=== PATIENT | female | born 1950 ===

== ENCOUNTER 2017-08-26 12:37 | Inpatient (IN) | payer MEDICARE, OTHER ==
--- NOTE | 2017-08-26 14:02 | C.PDOC ---
History Of Present Illness <Héctor Atkinson - Last Filed: 08/26/17 15:55> <Yesi Plascencia - Last Filed: 08/26/17 16:08> Patient is a 66 year old female with a history of HTN, HLD, DM, [place], cardiac stents x2, CKD on dialysis (MWF), who presents to the ED for a left lateral foot lesion. Patient is scheduled for the OR with Dr. Contreras today. The patient was scratched by her cat on the left lateral foot approximately 2 months ago. Her , who is at bedside & contributing to the history, applied topical antibiotic cream with minimal relief. Per the , 1 month ago, the lesion started to bleed, so he applied more topical antibiotic cream. Patient was then prescribed an oral and topical antibiotic for 7 days by PMD, Dr. Robert Aguirre. Per the , the PMD suggested the lesion may be infected. Patient saw Dr. Contreras, who then scheduled the patient for the OR today. Currently the patient complaints of mild pain and tenderness with palpation and with walking. Patient denies chest pain, palpitations, abdominal pain, sob, nausea, vomiting, fevers, and headaches. PMD: Dr. Robert Aguirre PMHx: HTN, HLD, DM, CKD, dialysis, [place], cardiac stents x2 FamHx: Mother- DM, ESRD/dialysis; father- DM SocHx: denies tobacco, alcohol, drug use; unemployed. Allergies: NKDA Medications: Lovastatin 40mg, gabapentic 300mg, clacium acetate, amplodipine 5mg , glipizide 5mg, zolipedem 10mg, carvedilol 25mg, plaquenil 200mg, asa 81mg, omeprazole 40mg, amitriptiline 80mg. (Yesi Plascencia) <Héctor Atkinson - Last Filed: 08/26/17 15:55> History Per: Patient Onset/Duration Of Symptoms: Persistent Current Symptoms Are (Timing): Better Severity: Mild Additional History Per: Patient, Family () - Ankle/Foot Description Of Injury: Other (cat scratch on left lateral foot) <Yesi Plascencia - Last Filed: 08/26/17 16:08> Time Seen by Provider: 08/26/17 13:48 Chief Complaint (Nursing): Lower Extremity Problem/Injury Past Medical History - Medical History PMH: CAD (2 stents), Depression, Diabetes, GERD, HTN, Hyperlipidemia, Chronic Kidney Disease (dialysis) Surgical History: Coronary Stent Family History: States: Unknown Family Hx - Social History Hx Tobacco Use: No Hx Alcohol Use: No Hx Substance Use: No - Immunization History Hx Tetanus Toxoid Vaccination: No Hx Influenza Vaccination: No Hx Pneumococcal Vaccination: No <Yesi Plascencia - Last Filed: 08/26/17 16:08> Vital Signs: Last Vital Signs Temp 98 F 08/26/17 13:31 Pulse 89 08/26/17 13:31 Resp 16 08/26/17 13:31 BP 160/80 H 08/26/17 13:31 Pulse Ox 98 08/26/17 14:25 - [facility] Procedures HEMODIALYSIS (02/17/14) Review Of Systems Constitutional: Negative for: Fever, Chills Cardiovascular: Negative for: Chest Pain, Palpitations, Edema, Light Headedness Respiratory: Negative for: Cough, Shortness of Breath Gastrointestinal: Negative for: Nausea, Vomiting, Abdominal Pain, Diarrhea, Constipation Genitourinary: Positive for: Other (anuric) Musculoskeletal: Positive for: Foot Pain (left lateral foot tenderness) Neurological: Negative for: Headache, Dizziness <Yesi Plascencia - Last Filed: 08/26/17 16:08> Physical Exam - Physical Exam Appears: Well, Non-toxic, No Acute Distress Skin: Normal Color, Warm, Dry Head: Atraumatic, Normacephalic Eye(s): bilateral: Normal Inspection Cardiovascular: Rhythm Regular, No Edema, No Murmur Respiratory: Normal Breath Sounds, No Rales, No Rhonchi, No Stridor, No Wheezing Gastrointestinal/Abdominal: Normal Exam, Bowel Sounds, Soft, No Tenderness Extremity: Tenderness (left lateral foot- non erythematous, slightly tender to touch with palpation; chronic hyperkeratization.), No Pedal Edema, No Calf Tenderness, No Swelling Extremity: Left: Painful To Bear Weight, Bilateral: No Pedal Edema Pulses: Left Dorsalis Pedis: Decreased, Right Dorsalis Pedis: Decreased Neurological/Psych: Oriented x3, Normal Speech Gait: With Assistance (2/2 to left foot pain) <Yesi Plascencia - Last Filed: 08/26/17 16:08> ED Course And Treatment - Laboratory Results Result Diagrams: 08/26/17 14:10 08/26/17 14:10 - Physician Consult Information Outcome Of Conversation: 1400: d/w Dr. Contreras- ok to admit to his service <Héctor Atkinson - Last Filed: 08/26/17 15:55> - Laboratory Results Result Diagrams: 08/26/17 14:10 08/26/17 14:10 O2 Sat by Pulse Oximetry: 98 <Yesi Plascencia - Last Filed: 08/26/17 16:08> Medical Decision Making <Héctor Atkinson - Last Filed: 08/26/17 15:55> <Yesi Plascencia - Last Filed: 08/26/17 16:08> Medical Decision Making: Dr. Contreras contacted and patient admitted under his service. Patient planned for OR. Dr. Contreras aware that patient needs dialysis today and will be scheduled for dialysis per Dr. Contreras. Ordered pre-op labs and imaging: - Labs: CBC, CMP, Coags, UA - Left foot Xray - Chest Xray - EKG - Keep NPO (Yesi Plascencia) Disposition Doctor Will See Patient In The: Hospital Counseled Patient/Family Regarding: Studies Performed, Diagnosis - Disposition Disposition Time: 15:55 <Héctor Atkinson - Last Filed: 08/26/17 15:55> <Yesi Plascencia - Last Filed: 08/26/17 16:08> - Disposition Disposition: HOSPITALIZED Condition: GOOD - Clinical Impression Clinical Impression: Chronic wound of extremity
[2017-08-26 14:14] LABS: BASO # 0.1 K/uL (0.0-0.2); BASO % 0.7 % (0.0-2.0); EOS # 0.3 K/uL (0.0-0.7); EOS % 3.3 % (0.0-4.0); HEMOGLOBIN 11.1 g/dL (11.0-16.0); LYMPH # 2.1 K/uL (1.0-4.3); LYMPH % 26.6 % (20.0-40.0); MEAN CELL VOLUME 94.4 fL (81.0-99.0); MEAN CORPUSCULAR HEMOGLOBIN 32.7 pg (27.0-31.0); MEAN CORPUSCULAR HGB CONC 34.7 g/dL (33.0-37.0); MEAN PLATELET VOLUME 10.7 fL (7.2-11.7); MONO # 0.5 K/uL (0.0-0.8); MONO % 6.9 % (0.0-10.0); NEUT # 4.9 K/uL (1.8-7.0); NEUT % 62.5 % (50.0-75.0); RBC 3.38 Mil/uL (3.80-5.20); RED CELL DISTRIBUTION WIDTH 15.4 % (11.5-14.5); WHITE BLOOD COUNT 7.9 K/uL (4.8-10.8)
[2017-08-26 14:22] LABS: PROTHROMBIN TIME 11.4 SECONDS (9.7-12.2)
--- NOTE | 2017-08-26 14:25 | RAD ---
HISTORY: preop Same day surgery COMPARISON: None available. TECHNIQUE: Chest PA and lateral FINDINGS: LUNGS: No focal consolidation. 9 mm ovoid density projects over the right lung base, likely calcifications; lateral view demonstrates this finding likely resides within the soft tissues of the breast. Please note that chest x-ray has limited sensitivity for the detection of pulmonary masses. PLEURA: No significant pleural effusion identified. No definite pneumothorax . CARDIOVASCULAR: Dual lead right-sided pacemaker. Cardiomegaly. Atherosclerotic calcification of the aorta. OSSEOUS STRUCTURES: Osseous demineralization. Degenerative changes. VISUALIZED UPPER ABDOMEN: Unremarkable. OTHER FINDINGS: None. IMPRESSION: Right-sided dual lead pacemaker. Cardiomegaly. Atherosclerotic calcifications of the aorta. 9 mm ovoid density projects over the right lung base, likely calcifications; lateral view demonstrates this finding likely resides within the soft tissues of the breast. Correlate clinically.
[2017-08-26 14:58] LABS: ALBUMIN 3.9 g/dL (3.5-5.0); CALCIUM 8.1 mg/dl (8.6-10.4)
[2017-08-26] MEDS ORDERED: Dextrose 50% SYRINGE Inj (50 ml) ONE (17:14)
[2017-08-26] MEDS ORDERED: Bupivacaine HCl 0.5% PF (10 ml) Inj ONE (17:33)
[2017-08-26] MEDS ORDERED: Lactated Ringer's 1,000 ML IV ONE (17:50)
[2017-08-26] MEDS ORDERED: Midazolam 2 MG/2 ML VIAL ONE (18:01)
[2017-08-26] MEDS ORDERED: ceFAZolin IV 1 gm in Dextrose 1 GM/50 ML BAG IVPB ONE (18:06)
[2017-08-26] MEDS ORDERED: Propofol 10 mg/ml Inj (20 ML) ONE (18:08)
[2017-08-26] MEDS ORDERED: Bacitracin 500 Units/gm Oint Foilpak UD ONE (18:17)
[2017-08-26] MEDS ORDERED: Oxycodone/Acetaminophen 5/325 mg Tab PO PRN (18:48)
--- NOTE | 2017-08-26 18:51 | CP.PCM.CON ---
History of Present Illness - History of Present Illness History of Present Illness: pt is seen and examined, full consult is dictated #[id number] 1.esrd 2.hyperkalemia 3.htn 4.dm 5.cad 6.s/p pacemaker 7. left foot infection , s/p I &D for hd today Past Patient History - Past Medical History & Family History Past Medical History?: Yes - Past Social History Smoking Status: Former Smoker - CARDIAC Hx Hypertension: Yes - PULMONARY Hx Respiratory Disorders: No - NEUROLOGICAL Hx Neurological Disorder: No - HEENT Hx HEENT Problems: No - RENAL Hx Chronic Kidney Disease: Yes (dialysis) - ENDOCRINE/METABOLIC Hx Endocrine Disorders: Yes Hx Diabetes Mellitus Type 2: Yes - HEMATOLOGICAL/ONCOLOGICAL Hx Blood Disorders: No - INTEGUMENTARY Hx Dermatological Problems: No - MUSCULOSKELETAL/RHEUMATOLOGICAL Hx Musculoskeletal Disorders: Yes Hx Falls: Yes - GASTROINTESTINAL Hx Gastrointestinal Disorders: No - GENITOURINARY/GYNECOLOGICAL Hx Genitourinary Disorders: No - PSYCHIATRIC Hx Depression: Yes Hx Substance Use: No - SURGICAL HISTORY Hx Coronary Stent: Yes - ANESTHESIA Hx Anesthesia: Yes Hx Anesthesia Reactions: No Hx Malignant Hyperthermia: No Meds Allergies/Adverse Reactions: Allergies Allergy/AdvReac Type Severity Reaction Status Date / Time No Known Allergies Allergy Verified 08/26/17 12:46 Results - Vital Signs Recent Vital Signs: Last Vital Signs Temp 98 F 08/26/17 16:48 Pulse 78 08/26/17 16:48 Resp 16 08/26/17 16:48 BP 160/80 H 08/26/17 16:48 Pulse Ox 98 08/26/17 16:48 - Labs Result Diagrams: 08/26/17 14:10 08/26/17 14:10 Labs: Laboratory Results - last 24 hr 08/26/17 08/26/17 08/26/17 14:10 14:10 14:10 WBC 7.9 RBC 3.38 L Hgb 11.1 Hct 31.9 L MCV 94.4 D MCH 32.7 H MCHC 34.7 RDW 15.4 H Plt Count 144 MPV 10.7 Neut % (Auto) 62.5 Lymph % (Auto) 26.6 Carter % (Auto) 6.9 Eos % (Auto) 3.3 Baso % (Auto) 0.7 Neut # (Auto) 4.9 Lymph # (Auto) 2.1 Carter # (Auto) 0.5 Eos # (Auto) 0.3 Baso # (Auto) 0.1 PT 11.4 INR 1.0 APTT 33 Sodium 139 Potassium 5.6 H Chloride 90 L Carbon Dioxide 30 Anion Gap 24 H BUN 56 H Creatinine 8.4 H* Est GFR ( Amer) 6 Est GFR (Non-Af Amer) 5 POC Glucose (mg/dL) Random Glucose 139 H Calcium 8.1 L Total Bilirubin 0.5 AST 23 ALT 26 Alkaline Phosphatase 153 H Total Protein 7.6 Albumin 3.9 Globulin 3.7 Albumin/Globulin Ratio 1.0 08/26/17 18:35 WBC RBC Hgb Hct MCV MCH MCHC RDW Plt Count MPV Neut % (Auto) Lymph % (Auto) Carter % (Auto) Eos % (Auto) Baso % (Auto) Neut # (Auto) Lymph # (Auto) Carter # (Auto) Eos # (Auto) Baso # (Auto) PT INR APTT Sodium Potassium Chloride Carbon Dioxide Anion Gap BUN Creatinine Est GFR ( Amer) Est GFR (Non-Af Amer) POC Glucose (mg/dL) 87 Random Glucose Calcium Total Bilirubin AST ALT Alkaline Phosphatase Total Protein Albumin Globulin Albumin/Globulin Ratio
[2017-08-26 20:58] VITALS: RESP 20
--- NOTE | 2017-08-26 22:20 | CP.PCM.CON ---
<Helder Yost - Last Filed: 08/26/17 23:59> History of Present Illness - History of Present Illness History of Present Illness: HPI: Patient is a 66 year old female with a history of HTN, HLD, DM, [place], cardiac stents x2, CKD on dialysis (MWF), who presented to the ED for a left lateral foot lesion. Patient is now status-post I&D of left lateral foot ulcer with Dr. Contreras today - Medicine is consulted for medical management. The patient was scratched by her cat on the left lateral foot approximately 2 months ago. Her , who is at bedside & contributing to the history, applied topical antibiotic cream with minimal relief. Per the , 1 month ago, the lesion started to bleed, so he applied more topical antibiotic cream. Patient was then prescribed an oral and topical antibiotic for 7 days by PMD, Dr. Robert Aguirre. Per the , the PMD suggested the lesion may be infected. Patient saw Dr. Contreras, who then scheduled the patient for the OR today. Currently the patient complaints of mild pain and tenderness with palpation and with walking. Patient denies chest pain, palpitations, abdominal pain, sob, nausea, vomiting, fevers, and headaches. PMD: Dr. Robert Aguirre PMHx: HTN, HLD, DM, CKD, dialysis, [place], cardiac stents x2 FamHx: Mother- DM, ESRD/dialysis; father- DM SocHx: denies tobacco, alcohol, drug use; unemployed. Allergies: NKDA Medications: Lovastatin 40mg, gabapentic 300mg, clacium acetate, amplodipine 5mg , glipizide 5mg, zolipedem 10mg, carvedilol 25mg, plaquenil 200mg, asa 81mg, omeprazole 40mg, amitriptiline 80mg. Review of Systems - Constitutional Constitutional: Headache. absent: Chills, Fever, Lethargy - EENT Eyes: absent: Change in Vision - Cardiovascular Cardiovascular: absent: Chest Pain, Chest Pain at Rest, Chest Pain with Activity , Diaphoresis, Pain Radiating to Arm/Neck/Jaw, Palpitations - Respiratory Respiratory: absent: Cough, Dyspnea, Dyspnea on Exertion, Wheezing - Gastrointestinal Gastrointestinal: Nausea. absent: Abdominal Pain, Bloating, Constipation, Diarrhea, Vomiting - Genitourinary Additional comments: Anuric - Musculoskeletal Additional comments: Left lateral foot tenderness - Integumentary Integumentary: absent: Bleeding Lesions Past Patient History - Past Medical History & Family History Past Medical History?: Yes - Past Social History Smoking Status: Former Smoker - CARDIAC Hx Hypertension: Yes - PULMONARY Hx Respiratory Disorders: No - NEUROLOGICAL Hx Neurological Disorder: No - HEENT Hx HEENT Problems: No - RENAL Hx Chronic Kidney Disease: Yes (dialysis) - ENDOCRINE/METABOLIC Hx Endocrine Disorders: Yes Hx Diabetes Mellitus Type 2: Yes - HEMATOLOGICAL/ONCOLOGICAL Hx Blood Disorders: No - INTEGUMENTARY Hx Dermatological Problems: No - MUSCULOSKELETAL/RHEUMATOLOGICAL Hx Musculoskeletal Disorders: Yes Hx Falls: Yes - GASTROINTESTINAL Hx Gastrointestinal Disorders: No - GENITOURINARY/GYNECOLOGICAL Hx Genitourinary Disorders: No - PSYCHIATRIC Hx Depression: Yes Hx Substance Use: No - SURGICAL HISTORY Hx Coronary Stent: Yes - ANESTHESIA Hx Anesthesia: Yes Hx Anesthesia Reactions: No Hx Malignant Hyperthermia: No Meds Allergies/Adverse Reactions: Allergies Allergy/AdvReac Type Severity Reaction Status Date / Time No Known Allergies Allergy Verified 08/26/17 12:46 - Medications Medications: Current Medications Docusate Sodium (Colace) 100 mg PO BID [facility] Cefazolin Sodium 1,000 mg/ (Sodium Chloride) 50 mls @ 100 mls/hr IVPB Q8H MAJOR PRN Reason: Protocol Ondansetron HCl (Zofran Inj) 4 mg IVP Q6 PRN PRN Reason: Nausea/Vomiting Oxycodone/Acetaminophen (Percocet 5/325 Mg Tab) 1 tab PO Q4H PRN PRN Reason: pain Stop: 08/29/17 18:49 Paricalcitol (Zemplar) 2 mcg IV MWF MAJOR Stop: 09/09/17 09:01 Physical Exam - Constitutional Appears: Well, Non-toxic, No Acute Distress - Head Exam Head Exam: ATRAUMATIC, NORMAL INSPECTION - Eye Exam Eye Exam: EOMI Pupil Exam: PERRL - ENT Exam ENT Exam: Mucous Membranes Moist - Cardiovascular Exam Cardiovascular Exam: REGULAR RHYTHM, RRR, +S1, +S2, Systolic Murmur. absent: Bradycardia, Tachycardia, JVD Additional comments: 2/6 systolic murmur best heard at right sternal border - w/ radiation into carotids - GI/Abdominal Exam GI & Abdominal Exam: Normal Bowel Sounds, Soft. absent: Tenderness - Rectal Exam Rectal Exam: Deferred - Extremities Exam Extremities exam: Positive for: normal capillary refill, tenderness, pedal pulses present Additional comments: Left lateral foot orthopedist. Surgical site wrapped with dressing clean, dry, intact. Left and right dorsalis pedis pulses decreased/weak - Neurological Exam Neurological exam: Alert, Oriented x3 - Skin Skin Exam: Intact, Warm Additional comments: chronic hyperkeratization of LE b/l Results - Vital Signs Recent Vital Signs: Last Vital Signs Temp 97.3 F L 08/26/17 20:10 Pulse 70 08/26/17 20:00 Resp 20 08/26/17 20:10 BP 183/58 H 08/26/17 21:40 Pulse Ox 100 08/26/17 20:10 - Labs Result Diagrams: 08/26/17 14:10 08/26/17 14:10 Labs: Laboratory Results - last 24 hr 08/26/17 08/26/17 08/26/17 14:10 14:10 14:10 WBC 7.9 RBC 3.38 L Hgb 11.1 Hct 31.9 L MCV 94.4 D MCH 32.7 H MCHC 34.7 RDW 15.4 H Plt Count 144 MPV 10.7 Neut % (Auto) 62.5 Lymph % (Auto) 26.6 Mobile % (Auto) 6.9 Eos % (Auto) 3.3 Baso % (Auto) 0.7 Neut # (Auto) 4.9 Lymph # (Auto) 2.1 Mobile # (Auto) 0.5 Eos # (Auto) 0.3 Baso # (Auto) 0.1 PT 11.4 INR 1.0 APTT 33 Sodium 139 Potassium 5.6 H Chloride 90 L Carbon Dioxide 30 Anion Gap 24 H BUN 56 H Creatinine 8.4 H* Est GFR ( Amer) 6 Est GFR (Non-Af Amer) 5 POC Glucose (mg/dL) Random Glucose 139 H Calcium 8.1 L Total Bilirubin 0.5 AST 23 ALT 26 Alkaline Phosphatase 153 H Total Protein 7.6 Albumin 3.9 Globulin 3.7 Albumin/Globulin Ratio 1.0 08/26/17 08/26/17 18:35 21:39 WBC RBC Hgb Hct MCV MCH MCHC RDW Plt Count MPV Neut % (Auto) Lymph % (Auto) Mobile % (Auto) Eos % (Auto) Baso % (Auto) Neut # (Auto) Lymph # (Auto) Mobile # (Auto) Eos # (Auto) Baso # (Auto) PT INR APTT Sodium Potassium Chloride Carbon Dioxide Anion Gap BUN Creatinine Est GFR ( Amer) Est GFR (Non-Af Amer) POC Glucose (mg/dL) 87 121 H Random Glucose Calcium Total Bilirubin AST ALT Alkaline Phosphatase Total Protein Albumin Globulin Albumin/Globulin Ratio Assessment & Plan (1) Status post incision and drainage Assessment and Plan: Patient is status post incision and drainage today 08/26/[address] Rowland Vitals stable, Hemodynamically stable, surgical site dressing is c/d/i, patient not in pain Cefazolin 1g IVP Q8H Zofran 4mg IVP Q6H PRN for nausea Percocet 1 tab PO Q4H for pain Colace 100mg PO BID for constipation 2/2 to surgery Would gram stain NEGATIVE F/U wound Cx Imagin view left foot xray: pending official report Status: Acute Priority: High (2) ESRD (end stage renal disease) Assessment and Plan: Nephrology consulted, Dr Boyd Patient receives HD on MWF Receiving HD treatment today * Plan is to discharge home after HD if patient stable Continue Paricalictol 2mcg IV MWF Status: Chronic Priority: High (3) DM2 (diabetes mellitus, type 2) Assessment and Plan: Cont home med Glipizide 5mg PO BID Status: Chronic Priority: High (4) HTN (hypertension) Assessment and Plan: BP well controlled Cont home med Norvasc 10mg PO QD Status: Chronic Priority: High (5) CAD (coronary artery disease) Assessment and Plan: Hx of stents - last stent 1 year ago (per patient) Cont home med Coreg 25mg PO BID ASA 81mg PO QD Cont home med Lovastatin 40mg PO QD Status: Chronic Priority: High (6) Aortic systolic murmur on examination Assessment and Plan: No ECHO on file to assess severity Status: Chronic Priority: Medium (7) Prophylactic measure Assessment and Plan: SCDs, contraindication to anticoagulation due to recent surgery (I&D) Diabetic diet Cont home med Omeprazole 40mg PO BID Status: Acute Priority: Low <Derrick Mcelroy P - Last Filed: 08/27/17 01:30> Meds - Medications Medications: Current Medications Amlodipine Besylate (Norvasc) 10 mg PO DAILY MAJOR Aspirin (Aspirin Chewable) 81 mg PO DAILY [facility] Carvedilol (Coreg) 25 mg PO BID [facility] Docusate Sodium (Colace) 100 mg PO BID [facility] Glipizide (Glucotrol) 5 mg PO BID [facility] Home Med (Omeprazole [Omeprazole]) 40 mg PO BID [facility] Cefazolin Sodium 1 gm/ Sodium (Chloride) 100 mls @ 100 mls/hr IVPB Q8H MAJOR PRN Reason: Protocol Last Admin: 08/27/17 01:05 Dose: 100 mls/hr Insulin Human Regular (Novolin R) 0 unit SC ACHS MAJOR PRN Reason: Protocol Ondansetron HCl (Zofran Inj) 4 mg IVP Q6 PRN PRN Reason: Nausea/Vomiting Oxycodone/Acetaminophen (Percocet 5/325 Mg Tab) 1 tab PO Q4H PRN PRN Reason: pain Stop: 08/29/17 18:49 Paricalcitol (Zemplar) 2 mcg IV MWF MJAOR Stop: 09/09/17 09:01 Rosuvastatin Calcium (Crestor) 5 mg PO HS MAJOR Zolpidem Tartrate (Ambien) 5 mg PO HS PRN PRN Reason: Insomnia Last Admin: 08/27/17 01:05 Dose: 5 mg Results - Vital Signs Recent Vital Signs: Last Vital Signs Temp 97.7 F 08/27/17 00:00 Pulse 75 08/27/17 00:00 Resp 20 08/27/17 00:00 BP 148/59 L 08/27/17 00:00 Pulse Ox 99 08/27/17 00:00 - Labs Result Diagrams: 08/26/17 14:10 08/26/17 14:10 Labs: Laboratory Results - last 24 hr 08/26/17 08/26/17 08/26/17 14:10 14:10 14:10 WBC 7.9 RBC 3.38 L Hgb 11.1 Hct 31.9 L MCV 94.4 D MCH 32.7 H MCHC 34.7 RDW 15.4 H Plt Count 144 MPV 10.7 Neut % (Auto) 62.5 Lymph % (Auto) 26.6 Mobile % (Auto) 6.9 Eos % (Auto) 3.3 Baso % (Auto) 0.7 Neut # (Auto) 4.9 Lymph # (Auto) 2.1 Mobile # (Auto) 0.5 Eos # (Auto) 0.3 Baso # (Auto) 0.1 PT 11.4 INR 1.0 APTT 33 Sodium 139 Potassium 5.6 H Chloride 90 L Carbon Dioxide 30 Anion Gap 24 H BUN 56 H Creatinine 8.4 H* Est GFR ( Amer) 6 Est GFR (Non-Af Amer) 5 POC Glucose (mg/dL) Random Glucose 139 H Calcium 8.1 L Total Bilirubin 0.5 AST 23 ALT 26 Alkaline Phosphatase 153 H Total Protein 7.6 Albumin 3.9 Globulin 3.7 Albumin/Globulin Ratio 1.0 08/26/17 08/26/17 18:35 21:39 WBC RBC Hgb Hct MCV MCH MCHC RDW Plt Count MPV Neut % (Auto) Lymph % (Auto) Mobile % (Auto) Eos % (Auto) Baso % (Auto) Neut # (Auto) Lymph # (Auto) Mobile # (Auto) Eos # (Auto) Baso # (Auto) PT INR APTT Sodium Potassium Chloride Carbon Dioxide Anion Gap BUN Creatinine Est GFR ( Amer) Est GFR (Non-Af Amer) POC Glucose (mg/dL) 87 121 H Random Glucose Calcium Total Bilirubin AST ALT Alkaline Phosphatase Total Protein Albumin Globulin Albumin/Globulin Ratio Attending/Attestation - Attestation I have personally seen and examined this patient.: Yes I have fully participated in the care of the patient.: Yes I have reviewed all pertinent clinical information: Yes Notes (Text): 08/27/17 01:29 Patient is a 66 year old female with a history of HTN, HLD, [place], [place], cardiac stents x2, CKD on dialysis (MWF), who presented to the ED for a left lateral foot lesion. Patient is now status-post I&D of left lateral foot ulcer with Dr. Contreras today - Medicine is consulted for medical management. Patient seen post HD. Plan Restart home meds GI DVT prophylaxis See orders for detail.
[2017-08-27] MEDS: ceFAZolin 1 GM in Sodium Chloride 0.9% 100 ML IVPB SCH ×3 (01:05→11:30)
[2017-08-27 06:13] LABS: BASO % 0.6 % (0.0-2.0); EOS # 0.2 K/uL (0.0-0.7); EOS % 3.3 % (0.0-4.0); HEMOGLOBIN 11.5 g/dL (11.0-16.0); LYMPH # 1.8 K/uL (1.0-4.3); LYMPH % 27.1 % (20.0-40.0); MEAN CELL VOLUME 93.5 fL (81.0-99.0); MEAN CORPUSCULAR HGB CONC 35.3 g/dL (33.0-37.0); MEAN PLATELET VOLUME 10.9 fL (7.2-11.7); MONO # 0.5 K/uL (0.0-0.8); MONO % 7.4 % (0.0-10.0); NEUT % 61.6 % (50.0-75.0); NRBC % 0.1 % (0.0-2.0); RBC 3.49 Mil/uL (3.80-5.20); RED CELL DISTRIBUTION WIDTH 15.2 % (11.5-14.5); WHITE BLOOD COUNT 6.5 K/uL (4.8-10.8)
--- NOTE | 2017-08-27 06:13 | OP ---
PROCEDURE DATE: 08/26/2017 PREOPERATIVE DIAGNOSIS: Abscess and infection of the left foot. POSTOPERATIVE DIAGNOSIS: Abscess and infection of the left foot. PROCEDURE: Drainage of subfascial abscess of the left foot with partial advancement flap closure. SURGEON: Ac Contreras MD TYPE OF ANESTHESIA: General. BLOOD LOSS: 40 mL. POSTOP CONDITION: Stable. INDICATIONS FOR SURGERY: This is a 66-year-old female with an infected ulcer of her left foot and a suspected abscess. She was taken to the OR for exploration and drainage. DESCRIPTION OF PROCEDURE: The patient was taken to the operating room, IV sedation was administered, and the left foot was prepped and draped. Generous amount of local anesthesia was infiltrated. Elliptical incision was made overlying the ulcer surrounding the abscess cavity. There was a small amount of pus drained in the subfascial area and this whole area was removed and aggressively debrided. Bleeding was controlled using the Bovie. There was a large tissue defect left and for this reason a full-thickness tissue flap including fascia was undermined. Counterincisions were made and a partial tissue advancement flap closure was performed. Central portion of wound was dressed with Bacitracin and sterilely. The patient tolerated the procedure well, returned to the recovery room in stable condition. Ac Contreras MD
[2017-08-27 06:37] LABS: CALCIUM 7.8 mg/dl (8.6-10.4)
[2017-08-27] MEDS: (Novolin R) Insulin Human Regular 100 units/ml vial SC SCH ×2 (08:08→11:52)
[2017-08-27 08:41] VITALS: PULSE 80; TEMP 98.7; O2SAT 98
--- NOTE | 2017-08-27 09:33 | RAD ---
PROCEDURE: Left Foot Radiographs. HISTORY: pre op COMPARISON: None FINDINGS: BONES: No fracture appreciated The plantar soft tissues are least 2 radiopaque metallic like foreign bodies resembling pieces of brain needle 1 is approximately 3 mm of maximal line the other is approximately 1 mm. Project plantar to the proximal phalanges and/or between the 1st and 2nd proximal phalanx on the oblique view closest to the 1st proximal phalanx -lateral cortex of the same. No localization within osseous structures is appreciated. Accessory ossifications center borders the cuboid bone JOINTS: First metatarsal-phalangeal joint arthrosis. SOFT TISSUES: Soft tissue swelling-mild -apparently patient is unknown chronic wound where foreign body is located. Vascular calcifications. OTHER FINDINGS: None. IMPRESSION: Radiopaque foreign body in pieces of a broken needle -as detailed above.
--- NOTE | 2017-08-27 09:35 | CP.PCM.PN ---
Subjective - Date & Time of Evaluation Date of Evaluation: 08/27/17 Time of Evaluation: 08:00 - Subjective Subjective: Medicine progress note ( Dr. Teixeira's service) Patient was seen and examined at bedside. Patient reports that she is doing well and has no complaints; denies chest pain, SOB, palpitations, dizziness, fever, chills, nausea, leg pain. Patient is able to ambulate without difficulty. Objective - Vital Signs/Intake and Output Vital Signs (last 24 hours): Temp Pulse Resp BP Pulse Ox 98.7 F 80 20 162/70 H 98 08/27/17 08:38 08/27/17 08:38 08/27/17 08:38 08/27/17 08:38 08/27/17 08:38 Intake and Output: 08/27/17 08/27/17 06:59 18:59 Intake Total 250 Balance 250 - Medications Medications: Current Medications Amlodipine Besylate (Norvasc) 10 mg PO DAILY [facility] Aspirin (Aspirin Chewable) 81 mg PO DAILY [facility] Carvedilol (Coreg) 25 mg PO BID [facility] Docusate Sodium (Colace) 100 mg PO BID [facility] Glipizide (Glucotrol) 5 mg PO BID [facility] Cefazolin Sodium 1 gm/ Sodium (Chloride) 100 mls @ 100 mls/hr IVPB Q8H [facility] PRN Reason: Protocol Last Admin: 08/27/17 01:05 Dose: 100 mls/hr Insulin Human Regular (Novolin R) 0 unit SC ACHS [facility] PRN Reason: Protocol Last Admin: 08/27/17 08:08 Dose: 3 unit Ondansetron HCl (Zofran Inj) 4 mg IVP Q6 PRN PRN Reason: Nausea/Vomiting Oxycodone/Acetaminophen (Percocet 5/325 Mg Tab) 1 tab PO Q4H PRN PRN Reason: pain Stop: 08/29/17 18:49 Pantoprazole Sodium (Protonix Ec Tab) 40 mg PO BID [facility] Paricalcitol (Zemplar) 2 mcg IV MWF [facility] Stop: 09/09/17 09:01 Rosuvastatin Calcium (Crestor) 5 mg PO HS [facility] Saccharomyces Boulardii (Florastor) 250 mg PO BID [facility] Zolpidem Tartrate (Ambien) 5 mg PO HS PRN PRN Reason: Insomnia Last Admin: 08/27/17 01:05 Dose: 5 mg - Labs Labs: 08/27/17 06:06 08/27/17 06:06 PT 11.4 SECONDS (9.7-12.2) 08/26/17 14:10 INR 1.0 08/26/17 14:10 APTT 33 SECONDS (21-34) 08/26/17 14:10 - Constitutional Appears: Well, No Acute Distress - Head Exam Head Exam: ATRAUMATIC, NORMAL INSPECTION - Eye Exam Eye Exam: EOMI, Normal appearance - ENT Exam ENT Exam: Mucous Membranes Moist - Respiratory Exam Respiratory Exam: Clear to Ausculation Bilateral, NORMAL BREATHING PATTERN. absent: Rhonchi, Wheezes, Respiratory Distress - Cardiovascular Exam Cardiovascular Exam: REGULAR RHYTHM, +S1, +S2, Murmur (Systolic ejection murmur ) - GI/Abdominal Exam GI & Abdominal Exam: Soft, Normal Bowel Sounds. absent: Firm, Guarding, Rigid, Tenderness - Extremities Exam Additional comments: S/p incision and drainage of Left lateral foot Dressing is clean, dry and intact - Neurological Exam Neurological Exam: Alert, Awake, Oriented x3 - Psychiatric Exam Psychiatric exam: Normal Affect, Normal Mood - Skin Skin Exam: Normal Color Assessment and Plan (1) Status post incision and drainage Assessment & Plan: Dr. Contreras consult---> Help appreciated \ * Management as per Dr. Contreras S/p Incision and drainage of left lateral foot, POD #1 * Patient is able to ambulate without difficulty Cefazolin 1g IVP Q8H Florastor 250mg PO BID Zofran 4mg IVP Q6H PRN for nausea Percocet 1 tab PO Q4H for pain Colace 100mg PO BID for constipation 2/2 to surgery Pending left lateral foot wound culture Status: Acute (2) ESRD (end stage renal disease) Assessment & Plan: Nephrology consulted, Dr Boyd Patient receives HD on MWF Receiving HD treatment today * Plan is to discharge home after HD if patient stable; as per nursing, patient does not want dialysis at the hospital and wants to go to her own facility tomorrow HD Continue Paricalictol 2mcg IV MWF Status: Chronic (3) DM2 (diabetes mellitus, type 2) Assessment & Plan: Accuchecks ISS: Medium dose Glipizide 5mg PO BID Status: Chronic (4) HTN (hypertension) Assessment & Plan: Controlled Norvasc 20mg PO daily Status: Chronic (5) CAD (coronary artery disease) Assessment & Plan: Hx of stents - last stent 1 year ago (per patient) Continue home medication * Coreg 25mg PO BID * ASA 81mg PO QD * Crestor 20mg PO HS Status: Chronic (6) Aortic systolic murmur on examination Assessment & Plan: Advised for outpatient echocardiogram Status: Chronic (7) Constipation Assessment & Plan: Colace 100mg PO BID Status: Acute (8) Prophylactic measure Assessment & Plan: GI: Omeprazole 40mg PO BID DVT: SCDs, contraindication to anticoagulation due to recent surgery (I&D) Diabetic diet Disposition: As per primary, Dr. Contreras, patient is to be discharge today after dialysis Patient was given additional instructions before discharge regarding what home medications should be continued and instruction for her to follow up with her primary care physician for a cardiology referral for noted aortic ejection murmur on examination. All plans and management discussed with Dr. Rin Teixeira Status: Acute
--- NOTE | 2017-08-27 09:46 | CON ---
DATE: 08/26/2017. RENAL CONSULTATION LOCATION: The patient is located in room 360, bed B. REQUESTED BY: Ac Contreras MD REASON FOR RENAL CONSULTATION: Hyperkalemia, end-stage renal disease for continuation of the hemodialysis. HISTORY OF PRESENT ILLNESS: Mrs. Coats is a 66 years old very pleasant female with a past medical history significant for hypertension, diabetes for long-time, hyperlipidemia, status post [place], coronary artery disease, status post stents x2, end-stage renal disease, on hemodialysis for 5 to 6 years, who presented to the ED for left lateral foot lesion, and the patient is scheduled for OR with Dr. Contreras today. As per the patient, the patient had a scratch by her cat on the left lateral left lateral foot approximately 2 months ago, and the patient was applying topical antibiotic cream with minimal relief. As per , one month ago, the lesion started to bleed who applied topical antibiotic cream, then the patient was prescribed oral and topical antibiotic for 7 days by PMD, Dr. Robert Aguirre. As per the PMD, the lesion may be infected and the patient saw Dr. Contreras who then scheduled the patient for OR today. The patient complains of mild pain and tenderness with palpation with walking. The patient denies any chest pain, palpitation. Denies any shortness of breath. Denies any nausea or vomiting. Denies any headache, dizziness. Denies any fever. PAST MEDICAL HISTORY: Significant for hypertension, diabetes, coronary artery disease, status post two stents, end-stage renal disease, on hemodialysis for the last 5 to 6 years. PAST SURGICAL HISTORY: Status post coronary stents x2 and left upper extremity AV fistula. ALLERGIES: NO KNOWN DRUG ALLERGIES. SOCIAL HISTORY: The patient denies any smoking, alcohol, or drugs. Unemployed. HOME MEDICATIONS: Include lovastatin 40 mg, gabapentin 300 mg, calcium acetate, amlodipine 5 mg daily, glipizide 5 mg, Ambien 10 mg, Coreg 25 mg, Plaquenil 200 mg, aspirin 81 mg, omeprazole 40 mg, and amitriptyline 80 mg. FAMILY HISTORY: Mother suffered with diabetes, end-stage renal disease, on dialysis. Father diabetic. REVIEW OF SYSTEMS: Significant for left lateral foot ulcer and pain in the left leg for the last 2 months after the history of a cat scratch. PHYSICAL EXAMINATION: VITAL SIGNS: As follows, blood pressure 160/80, pulse 89, respirations 16, temperature 98, saturation 98%. Height 5 feet, weight is 150 pounds. GENERAL: Mrs. Jorge L Bernal is a 66 years old very pleasant elderly female, moderately built, moderately nourished, not in acute distress. HEENT: Pupils normal and reactive to light and accommodation. Conjunctivae pink. Sclerae nonicteric. Tongue is moist and trachea is midline. LUNGS: Symmetric on both sides. Bilateral breath sounds present. Clear on auscultation. CVS: [place] at the fifth intercostal space, midclavicular line. S1, S2 audible. No murmur or gallop. ABDOMEN: Normal in appearance. Soft, tympanic. No guarding. No hepatosplenomegaly. USED [employer]: The patient is alert, awake, and oriented x3. Nonfocal neuro examination. Cranial nerves II through XII grossly intact. Sensory and motor system is within normal limits. EXTREMITIES: The patient has a dressing to the left foot and status post incision and drainage of left foot. LABORATORY DATA: Include as follows: As of 08/26/2017, WBC 7.9, hemoglobin 11.1, hematocrit 31.9, platelets 144. PT 11.4, PTT 33. Sodium 139, potassium 5.6, chloride 90, CO2 of 30, BUN 56, creatinine 8.4, glucose 139, calcium 8.1. Total bili 0.5, AST 23, ALT 26, alkaline phosphatase 153, total protein 7.6, albumin is 3.9. X-ray of the foot report pending, and chest x-ray right-sided dual lead pacemaker, cardiomegaly, atherosclerotic calcification of the aorta, 9 mm oval density projects for the right lung base, likely calcifications of the lateral view demonstrates these findings likely resides within the soft tissues of the breast, correlate clinically. IMPRESSION: In summary, Mrs. Jorge L Bernal is a 66 years old very pleasant elderly female with a history of hypertension, diabetes, hyperlipidemia, coronary artery disease, status post stents, end-stage renal disease on hemodialysis, status post pacemaker placement right subclavian area with hyperkalemia and status post scratch by her cat on the left lateral foot nonhealing for the last 2 months, no drainage. 1. End-stage renal disease. Continue hemodialysis three times a week; Saturday, Saturday, and Saturday. 2. Hyperkalemia secondary to end-stage renal disease. 3. Hypertension. 4. Diabetes. 5. Coronary artery disease, status post stents, asymptomatic. 6. Status post pacemaker. 7. Left foot infection, status post incision and drainage this evening. We will schedule for hemodialysis tonight, and the patient may be discharged whenever cleared by Dr. Contreras. Thank you for allowing me to participate in your patient's care. The patient can be followed as an outpatient with her private polymer scientist, Dr. Roselia Romeo. Diallo Boyd MD
[2017-08-27 09:56] VITALS: BP 1722/90
[2017-08-27] MEDS ORDERED: Pantoprazole 40 mg EC Tab PO SCH (10:00)
[2017-08-27] MEDS ORDERED: Saccharomyces Boulardi 250 mg Cap PO SCH (10:00)
--- NOTE | 2017-08-27 11:00 | CP.PCM.PN ---
Subjective - Date & Time of Evaluation Date of Evaluation: 08/27/17 Time of Evaluation: 10:59 - Subjective Subjective: pt is seen and examined, follow up consult is dictated #[id number] s/p hd yesterday Objective - Vital Signs/Intake and Output Vital Signs (last 24 hours): Temp Pulse Resp BP Pulse Ox 98.7 F 80 20 1722/90 H 98 08/27/17 08:38 08/27/17 08:38 08/27/17 08:38 08/27/17 09:51 08/27/17 08:38 Intake and Output: 08/27/17 08/27/17 06:59 18:59 Intake Total 250 Balance 250 - Medications Medications: Current Medications Amlodipine Besylate (Norvasc) 10 mg PO DAILY [facility] Last Admin: 08/27/17 09:55 Dose: 10 mg Aspirin (Aspirin Chewable) 81 mg PO DAILY [facility] Last Admin: 08/27/17 09:51 Dose: 81 mg Carvedilol (Coreg) 25 mg PO BID [facility] Last Admin: 08/27/17 09:51 Dose: 25 mg Docusate Sodium (Colace) 100 mg PO BID [facility] Last Admin: 08/27/17 09:51 Dose: 100 mg Glipizide (Glucotrol) 5 mg PO BID [facility] Last Admin: 08/27/17 09:53 Dose: 5 mg Cefazolin Sodium 1 gm/ Sodium (Chloride) 100 mls @ 100 mls/hr IVPB Q8H [facility] PRN Reason: Protocol Last Admin: 08/27/17 10:35 Dose: Not Given Insulin Human Regular (Novolin R) 0 unit SC [facility] PRN Reason: Protocol Last Admin: 08/27/17 08:08 Dose: 3 unit Ondansetron HCl (Zofran Inj) 4 mg IVP Q6 PRN PRN Reason: Nausea/Vomiting Oxycodone/Acetaminophen (Percocet 5/325 Mg Tab) 1 tab PO Q4H PRN PRN Reason: pain Stop: 08/29/17 18:49 Pantoprazole Sodium (Protonix Ec Tab) 40 mg PO BID [facility] Last Admin: 08/27/17 09:53 Dose: 40 mg Paricalcitol (Zemplar) 2 mcg IV MWF [facility] Stop: 09/09/17 09:01 Rosuvastatin Calcium (Crestor) 10 mg PO HS [facility] Saccharomyces Boulardii (Florastor) 250 mg PO BID [facility] Last Admin: 08/27/17 09:53 Dose: 250 mg Zolpidem Tartrate (Ambien) 5 mg PO HS PRN PRN Reason: Insomnia Last Admin: 08/27/17 01:05 Dose: 5 mg - Labs Labs: 08/27/17 06:06 08/27/17 06:06 PT 11.4 SECONDS (9.7-12.2) 08/26/17 14:10 INR 1.0 08/26/17 14:10 APTT 33 SECONDS (21-34) 08/26/17 14:10
--- NOTE | 2017-08-27 21:25 | CARD ---
APPROVED REPORT EKG Measurement Heart [id number] <Conclusion> Atrial-sensed ventricular-paced rhythm Abnormal ECG
--- NOTE | 2017-08-28 05:10 | PN ---
DATE: The patient is located in room 360, bed B. REQUESTED BY: Ac Contreras MD REASON FOR FOLLOWUP: End-stage renal disease. SUBJECTIVE: Mrs. Jorge L Bernal is a 66-year-old very pleasant elderly female with a history of longstanding hypertension, diabetes, end-stage renal disease, status post scratch of the left foot by her cat with a nonhealing ulcer and drainage. The patient was admitted electively for an I and D of the left foot. The patient was also found to have hyperkalemia and subsequently admitted to dialysis and admitted to the floor. The patient is feeling better, not in acute distress. The patient underwent hemodialysis last night, tolerated very well without any complications. No chest pain. No palpitations. No fever. No cough. No abdominal pain. No nausea. No vomiting. No diarrhea. The patient has a dressing to the left foot. PHYSICAL EXAMINATION: VITAL SIGNS: This morning is as follows: Blood pressure 172/90, pulse 80, respirations 20, temperature 98.7, and saturations 98%. Height 5 feet. Weight is 150 pounds. GENERAL: Mrs. Jorge L Bernal is a 66-year-old elderly female, moderately built, moderate nourished, not in distress. HEENT: Pupils are normal and reactive to light and accommodation. Conjunctivae pink. Sclerae anicteric. Tongue is moist. Trachea is midline. LUNGS: Symmetric on both sides. Bilateral breath sounds present. Clear on auscultation. CVS: [place] at the fifth intercostal space, midclavicular line. S1, S2 audible. No murmur or gallop. ABDOMEN: Normal in appearance, soft, tympanic. No guarding. No rigidity. No hepatosplenomegaly. [employer] UT[employer] SUPERVISOR: The patient is alert, awake, and oriented x3. Nonfocal neuro examination, the patient has a dressing to the left foot. CURRENT MEDICATIONS: Include as follows: Omeprazole 40 mg p.o. b.i.d., lovastatin 40 mg p.o. daily, glipizide 5 mg p.o. b.i.d., clindamycin 300 mg p.o. t.i.d., Coreg 25 mg p.o. b.i.d., Elavil 50 mg p.o. b.i.d., Norvasc 10 mg daily, and zolpidem 10 mg p.o. at bedtime. SUMMARY: This is 66-year-old female with hypertension, diabetes, end-stage renal disease, with abscess and infected left foot after scratch from the cat. The patient underwent drainage of subfascial abscess of the left foot with partial advancement of the flap closure. Hyperkalemia. End-stage renal disease, on hemodialysis. 1. End-stage renal disease. Continue hemodialysis 3 times a week, Saturday, Saturday, and Saturday. 2. Status post abscess drainage of the left foot with partial advancement flap closure. 3. Hypertension. 4. Diabetes. 5. Status post hyperkalemia. Serum potassium is within normal limits today. Her blood work this morning, labs consist of WBC 6.3, hemoglobin 11.1, hematocrit is 32.6, H and H are stable. Platelets 143. Sodium is 138, potassium 4.3, chloride 94, CO2 of 31, BUN 22, creatinine 0.1, glucose 235, and calcium 7.8. The patient can be discharged from the renal standpoint and follow up with her primary white goods appliance tech, Dr. Roselia Law. dialysis. Thank you for allowing me to participate in your patient's care. Diallo Boyd MD
[2017-08-28] MEDS ORDERED: Paricalcitol 2 mcg/ml Inj IV SCH (09:00)
== END 2017-08-27 13:32 | disposition home or self-care (01) | DRG 579 ==
LOC: C.ER 12:37 → C.9E 13:59 → C.3T 18:48 → OBSVTOIN 18:49 → C.3T 18:49 → EDBD 18:49
PROVIDERS: ADMIT Surgery; ATTEND Surgery
PROC: 5A1D70Z Performance of Urinary Filtration, Intermittent, Less than 6 Hours Per Day (ICD-10-PCS; 2017-08-26)
PROC: 0J9R0ZZ Drainage of Left Foot Subcutaneous Tissue and Fascia, Open Approach (ICD-10-PCS; principal; 2017-08-26 18:00)
DX: L02.612 Cutaneous abscess of left foot (principal); N18.6 End stage renal disease; E11.22 Type 2 diabetes mellitus with diabetic chronic kidney disease; E11.621 Type 2 diabetes mellitus with foot ulcer; I12.0 Hypertensive chronic kidney disease with stage 5 chronic kidney disease or end stage renal disease; E87.5 Hyperkalemia; L97.529 Non-pressure chronic ulcer of other part of left foot with unspecified severity; I25.10 Atherosclerotic heart disease of native coronary artery without angina pectoris; K21.9 Gastro-esophageal reflux disease without esophagitis; I25.2 Old myocardial infarction; K59.00 Constipation, unspecified; E78.5 Hyperlipidemia, unspecified; W55.03XA Scratched by cat, initial encounter; Z87.891 Personal history of nicotine dependence; Z95.0 Presence of cardiac pacemaker; Z95.5 Presence of coronary angioplasty implant and graft; Z99.2 Dependence on renal dialysis